=== PATIENT | male | born 1960 | race Hispanic/Latino ===

== ENCOUNTER 2024-05-06 09:39 | Emergency (ER) | payer OTHER ==
[~2024-05-06] VITALS: Ht 165.1 cm; Wt 68.5 kg
[2024-05-06 09:40] VITALS: TEMP 98.2
[2024-05-06 10:01] VITALS: PULSE 84; RESP 14; O2SAT 100
[2024-05-06] MEDS ORDERED: ULTRAM 50MG50 MG PO (10:07)
== END 2024-05-06 10:25 | disposition home or self-care (01) ==
LOC: ER 09:58
DX: M54.42 Lumbago with sciatica, left side (principal); I10 Essential (primary) hypertension; M10.9 Gout, unspecified
CPT/HCPCS: 99283